=== PATIENT | male | born 1990 | race Two or more races ===

== ENCOUNTER 2018-09-26 11:00 | Emergency (ER) | payer BC ==
[~2018-09-26 11:00] MED LIST: ISOVUE-370 76%-LOCM 1 ML ONE
[2018-09-26] MEDS ORDERED: Morphine 4 MG/ML VIAL ONE (11:20)
[2018-09-26 11:36] LABS: #Eosinphils 0.2 thou/uL (0.0-0.7); #Lymphocytes 2.7 thou/uL (1.20-3.40); #Monocytes 0.4 thou/uL (0.11-0.59); #Neutrophils 2.5 thou/uL (1.40-6.50); %Basophils 0.6 % (0.0-1.0); %Eosinophils 2.9 % (0.0-10.0); %Lymphocytes 46.6 % (21.0-51.0); %Monocytes 7.1 % (0.0-10.0); %Neutrophils 42.8 % (42.0-75.0); Hemoglobin 16.2 g/dL (14.0-18.0); Mean Corpuscular HGB CONC 35.2 g/dL (32.0-36.0); Mean Corpuscular Hemoglobin 34.7 pg (27.0-31.0); Mean Corpuscular Volume 98.8 fL (78.0-98.0); Mean Platelet Volume 6.8 fL (7.4-10.4); Platelet Count 379 thou/uL (130-400); RBC Distribution Width 11.8 % (11.5-14.5); Red Blood Cell (RBC) Count 4.66 mill/uL (4.70-6.10); White Blood Cell (WBC) Count 5.8 thou/uL (4.8-10.8)
[2018-09-26 11:42] LABS: INR-International Normal Ratio 0.9; PTT 25.9 SEC (22.9-36.1); Prothrombin Time 12.7 SEC (12.0-14.7)
[2018-09-26 11:57] LABS: ALT (SGPT) 79 U/L (8-55); AST (SGOT) 47 U/L (5-34); Albumin 4.1 g/dL (3.5-5.0); Alcohol 14 mg/dL (Less than 10); Alkaline Phosphatase 101 U/L (40-150); Anion Gap 13 mmol/L (10-20); BUN (Urea Nitrogen) 8 mg/dL (8.9-20.6); Bilirubin, Total 0.5 mg/dL (0.2-1.2); Calc. Creatinine Clearance 0 mL/min (70-130); Calcium 9.4 mg/dL (7.8-10.44); Carbon Dioxide 23 mmol/L (22-29); Chloride 107 mmol/L (98-107); Estimated GFR-MDRD Greater than 90; Glucose 108 mg/dL (70-105); Lipase 17 U/L (8-78); Potassium 3.8 mmol/L (3.5-5.1); Protein, Total 7.1 g/dL (6.0-8.3); Sodium 139 mmol/L (136-145)
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
== END 2018-09-26 13:19 | disposition home or self-care (01) ==
LOC: ERS 11:00
DX: S22.32XA Fracture of one rib, left side, initial encounter for closed fracture (principal); I10 Essential (primary) hypertension; F17.290 Nicotine dependence, other tobacco product, uncomplicated; V89.2XXA Person injured in unspecified motor-vehicle accident, traffic, initial encounter
CPT/HCPCS: 70450; 71260; 74177; 80053; 80307; 83690; 85025; 85610; 85730; 96361; 96374; J2270; Q9966